=== PATIENT | female | born 1950 | race Caucasian/White ===

== ENCOUNTER 2021-04-26 09:38 | Emergency (ER) | payer OTHER ==
[~2021-04-26 09:38] MED LIST: VIBRAMYCIN100 M1 PO
[2021-04-26 11:59] LABS: BASOPHIL 0.3 % (0-2); EOSINOPHIL 0 % (0-7); HCT 36.4 % (37.0-47.0); HGB 11.9 g/dl (12.5-16.0); LYMPHOCYTE 7.4 % (15-48); MCHC 32.7 g/dL (32.0-36.0); MCV 88.8 fL (78.0-100.0); MONOCYTE 8.7 % (0-12); MPV 11.3 fL (6.0-9.5); NEUTROPHIL 82.9 % (41-80); NRBC 0; PLT 229 K/uL (150-400); RDW 14.9 % (11.5-14.0); WBC 11.8 K/uL (4.0-10.5)
[2021-04-26 12:21] LABS: ALBUMIN 2.6 g/dL (3.4-5.0); BILIRUBIN - TOTAL 0.3 mg/dL (0.2-1.0); BUN/CREAT RATIO (CALC) 11.6 RATIO; CREATININE 0.86 mg/dL (0.51-0.95); GLOBULIN (CALCULATION) 2.9 g/dL; POTASSIUM 3.1 mmol/L (3.5-5.1); TOTAL PROTEIN 5.5 g/dL (6.4-8.2)
[2021-04-26 12:37] LABS: BILIRUBIN NEGATIVE (NEGATIVE); BLOOD NEGATIVE Ery/uL (NEGATIVE); CLARITY CLEAR (CLEAR); COLOR YELLOW (YELLOW); GLUCOSE (U) NORMAL (NORMAL); LEUKOCYTES NEGATIVE Leu/uL (NEGATIVE); NITRITE POSITIVE (NEGATIVE); PROTEIN NEGATIVE (NEGATIVE); SPECIFIC GRAVITY <=1.005 (1.001-1.030); UROBILINOGEN 0.2 mg/dL (0.2-1.0)
[2021-04-26 12:48] LABS: BACTERIA TRACE; SQUAMOUS EPITHELIAL CELLS RARE; URINARY WBC RARE
[2021-04-26] MEDS ORDERED: CIPRO500 MG PO (13:00)
[2021-04-26] MEDS ORDERED: AZITHROMYCIN250 MG PO (13:39)
[2021-04-26 13:52] LABS: CORONAVIRUS 2019 SARS-COV-2 NEGATIVE (NEGATIVE); INFLUENZA A NAA NEGATIVE (NEGATIVE)
== END 2021-04-26 13:57 | disposition home or self-care (01) ==
LOC: FER 09:38
PROVIDERS: Internal Medicine
DX: A09 Infectious gastroenteritis and colitis, unspecified (principal); N39.0 Urinary tract infection, site not specified; E87.6 Hypokalemia; M25.561 Pain in right knee; I10 Essential (primary) hypertension; Z20.822 Contact with and (suspected) exposure to COVID-19; Z98.890 Other specified postprocedural states
CPT/HCPCS: 36415; 73560; 80053; 81001; 82550; 84145; 84443; 85025; 86141; 93971; U0002